=== PATIENT | male | born 1945 | race Caucasian/White ===

== ENCOUNTER 2021-05-31 13:10 | Outpatient (CLI) | payer MEDICARE | END 2021-05-31 23:59 | disposition home or self-care (01) | LOC: LAB.S 13:10 | PROVIDERS: ATTEND Physician Assistant | DX: R10.9 Unspecified abdominal pain (principal) | CPT/HCPCS: 87086 ==

== ENCOUNTER 2022-09-29 01:59 | Outpatient (CLI) | payer MEDICARE | END 2022-09-29 02:00 | disposition critical access hospital (66) | LOC: EMS 01:59 | DX: R07.9 Chest pain, unspecified (principal); R07.81 Pleurodynia | CPT/HCPCS: A0425; A0429 ==

== ENCOUNTER 2022-09-29 02:39 | Emergency (ER) | payer MEDICARE ==
--- NOTE | 2022-09-29 03:00 | ED Physician Documentation ---
History of Present Illness - Stated complaint Stated Complaint: CHEST PX - Chief complaint Chief Complaint: Resp - History obtained from History obtained from: Patient, Family () - Additonal information Additional information: 77-year-old male with past medical history of bladder cancer status postresection in July 2021 and chemotherapy, with new left chest tumor diagnosed in July, also with R sided PE dx 2-3 weeks ago on lovenox, presents with left-sided chest pain waking him from sleep at 1 AM, constant, severe, positional, improving status post 4 aspirin en route with EMS. Currently 3 out of 10 but was initially 10 out of 10. Review of Systems Ten Systems: 10 systems reviewed and negative Constitutional: denies: Fever, Chills Cardiac: reports: Chest pain / pressure. denies: Palpitations Respiratory: reports: Dyspnea. denies: Cough GI: denies: Abdominal Pain, Nausea Musculoskeletal: reports: Back pain PD PAST MEDICAL HISTORY - Past Medical History Cardiovascular: Hypertension, High cholesterol Other Past Medical History: PE - Past Surgical History Past Surgical History: Yes HEENT: Cataracts - Present Medications Home Medications: Ambulatory Orders Medication Instructions Recorded Confirmed Aspirin [Aspir 81] 09/19/15 09/19/15 Lisinopril/Hydrochlorothiazide 09/19/15 09/19/15 [Lisinopril-Hctz 10-12.5 mg Tab] - Allergies Allergies/Adverse Reactions: Allergies Allergy/AdvReac Type Severity Reaction Status Date / Time No Known Drug Allergies Allergy Verified 09/29/22 02:48 - Social History Does the pt smoke?: No Smoking Status: Never smoker Does the pt drink ETOH?: Yes Does the pt have substance abuse?: No - Immunizations Immunizations are current?: No Immunizations: TDAP >10years/unknown PD ED PE NORMAL - Vitals Vital signs reviewed: Yes - General General: Alert and oriented X 3, No acute distress, Other (thin appearing) - HEENT HEENT: Atraumatic, PERRL, EOMI, Moist mucous membranes, Pharynx benign - Neck Neck: Supple, no meningeal sign - Cardiac Cardiac: RRR - Respiratory Respiratory: No respiratory distress, Clear bilaterally - Abdomen Abdomen: Non tender, Non distended - Back Back: No spinal TTP - Derm Derm: Normal color, Warm and dry - Extremities Extremities: No deformity - Neuro Neuro: No motor deficit, No sensory deficit - Psych Psych: Normal mood, Normal affect Results - Vitals Vitals: Vital Signs - 24 hr 09/29/22 09/29/22 02:41 03:41 Temperature 37.8 C Heart Rate 76 72 Respiratory 21 15 Rate Blood Pressure 123/67 114/62 O2 Saturation 97 98 Oxygen O2 Source Room air - EKG (time done) 0249 Rate: Rate (enter#) (74) Rhythm: NSR [place]: Normal Intervals: Normal LA QRS: Normal Ischemia: Normal ST segments - Labs Labs: Laboratory Tests 09/29/22 09/29/22 09/29/22 03:00 03:00 03:00 WBC 7.8 RBC 3.69 L Hgb 11.3 L Hct 36.4 L MCV 98.6 H MCH 30.6 MCHC 31.0 L RDW 12.5 Plt Count 319 MPV 8.7 Neut # (Auto) 6.1 Lymph # (Auto) 1.0 L [place] # (Auto) 0.7 Eos # (Auto) 0.1 Baso # (Auto) 0.0 Absolute Nucleated RBC 0.00 Nucleated RBC % 0.0 Sodium 136 Potassium 3.5 Chloride 100 L Carbon Dioxide 24 Anion Gap 12.0 BUN 18 Creatinine 0.7 Estimated GFR (MDRD) 110 Glucose 112 H Calcium 8.8 Total Bilirubin 0.8 AST 12 ALT 16 Alkaline Phosphatase 79 Troponin I High Sens 2.6 B-Natriuretic Peptide Total Protein 7.3 Albumin 3.4 Globulin 3.9 Albumin/Globulin Ratio 0.9 L Lipase 28 09/29/22 03:00 WBC RBC Hgb Hct MCV MCH MCHC RDW Plt Count MPV Neut # (Auto) Lymph # (Auto) [place] # (Auto) Eos # (Auto) Baso # (Auto) Absolute Nucleated RBC Nucleated RBC % Sodium Potassium Chloride Carbon Dioxide Anion Gap BUN Creatinine Estimated GFR (MDRD) Glucose Calcium Total Bilirubin AST ALT Alkaline Phosphatase Troponin I High Sens B-Natriuretic Peptide 13 Total Protein Albumin Globulin Albumin/Globulin Ratio Lipase PD Medical Decision Making - ED course ED course: 77yM p/w L sided chest pain, will obtain trop/BNP to evaluate for R heart strain 2/2 PE. patient is already on appropriate treatment and compliant with treatment. will also eval for cardiac injury. ekg noncontributory. symptomatic care provided as well. Patient feeling significantly better. Return precautions given. plan to f/u with oncologist and palliative care. Departure - Departure Disposition: 01 Home, Self Care Clinical Impression: Chest pain Condition: Good Instructions: ED Chest Pain Atypical Unkn Cause Comments: You were seen in the emergency department for chest pain and had EKG, lab work, and chest x-ray done which revealed stable right lung mass. EKG did not indicate a heart attack nor did your bloodwork. There is additionally no strain on the heart based on bloodwork, which can be an indication of worsening pulmonary embolism. Please follow up with your oncologist and with palliative care. return to the ED for new or worsening symptoms or other concerns.
[2022-09-29 03:06] LABS: BASOPHILS % (AUTO) 0.5 %; EOSINOPHILS # (AUTO) 0.1 10^3/uL (0.0-0.7); EOSINOPHILS % (AUTO) 0.6 %; HCT - HEMATOCRIT 36.4 % (42.0-52.0); HGB - HEMOGLOBIN 11.3 g/dL (14.0-18.0); LYMPHOCYTES % (AUTO) 12.5 %; MEAN CORPUSCULAR HEMOGLOBIN 30.6 pg (27.0-31.0); MEAN CORPUSCULAR VOLUME 98.6 fL (80.0-94.0); MEAN PLATELET VOLUME 8.7 fL (7.4-11.4); MONOCYTES # (AUTO) 0.7 10^3/uL (0.0-1.0); MONOCYTES % (AUTO) 8.8 %; NEUTROPHILS # (AUTO) 6.1 10^3/uL (1.5-6.6); NEUTROPHILS % (AUTO) 77.5 %; PLT - PLATELET COUNT 319 10^3/uL (130-450); RED BLOOD COUNT 3.69 10^6/uL (4.70-6.10); RED CELL DISTRIBUTION WIDTH 12.5 % (12.0-15.0); WHITE BLOOD COUNT 7.8 x10^3/uL (4.8-10.8)
[2022-09-29 03:18] LABS: ALBUMIN 3.4 g/dL (3.2-5.5); ALBUMIN/GLOBULIN RATIO 0.9 (1.0-2.2); BILIRUBIN,TOTAL 0.8 mg/dL (0.2-1.0); CALCIUM 8.8 mg/dL (8.5-10.3); CREATININE 0.7 mg/dL (0.6-1.2); POTASSIUM 3.5 mmol/L (3.5-5.0); TOTAL PROTEIN 7.3 g/dL (6.7-8.2)
[2022-09-29] MEDS: MORPHINE 2 MG/ML CARPUJECT IVP STA (03:34)
[2022-09-29 04:08] VITALS: BP 115/60
--- NOTE | 2022-09-29 08:22 | XRAY Report ---
PROCEDURE: Chest 1 View X-Ray INDICATIONS: Chest Pain TECHNIQUE: One view of the chest was acquired. COMPARISON: None. FINDINGS: Surgical changes and devices: None. Lungs and pleura: Hyperinflation suggesting COPD. Infiltrates in the left lung suspicious for pneumon ia. No pleural effusions or pneumothorax. Mediastinum: Mediastinal contours appear normal. Heart size is normal. Bones and chest wall: No suspicious bony lesions. Overlying soft tissues appear unremarkable. IMPRESSION: 1. Infiltrates in the left lung suspicious for pneumonia. 2. Hyperinflation suggesting COPD. No significant discrepancy with the preliminary interpretation. Reviewed by: Jeovany Steel MD on 09/29/2022 8:30 AM PST Approved by: Jeovany Steel MD on 09/29/2022 8:30 AM [facility] Station ID: [id number]
== END 2022-09-29 04:11 | disposition home or self-care (01) ==
LOC: EDUNIT# → ED 02:39
DX: R07.9 Chest pain, unspecified (principal)
CPT/HCPCS: 36415; 80053; 83690; 83880; 84484; 85025; 93005; 96374; 99284

== ENCOUNTER 2023-05-10 08:00 | Outpatient (CLI) | payer MEDICARE ==
[2023-05-10 17:10] LABS: BASOPHILS % (AUTO) 0.2 %; EOSINOPHILS % (AUTO) 0.1 %; HCT - HEMATOCRIT 30.6 % (42.0-52.0); HGB - HEMOGLOBIN 9.4 g/dL (14.0-18.0); LYMPHOCYTES # (AUTO) 0.2 10^3/uL (1.5-3.5); LYMPHOCYTES % (AUTO) 1.8 %; MEAN CORPUSCULAR HEMOGLOBIN 30.7 pg (27.0-31.0); MEAN CORPUSCULAR HGB CONC 30.7 g/dL (32.0-36.0); MEAN PLATELET VOLUME 9.8 fL (7.4-11.4); MONOCYTES # (AUTO) 0.4 10^3/uL (0.0-1.0); MONOCYTES % (AUTO) 4.2 %; NEUTROPHILS # (AUTO) 7.7 10^3/uL (1.5-6.6); PLT - PLATELET COUNT 170 10^3/uL (130-450); RED BLOOD COUNT 3.06 10^6/uL (4.70-6.10); RED CELL DISTRIBUTION WIDTH 15.3 % (12.0-15.0); WHITE BLOOD COUNT 8.3 x10^3/uL (4.8-10.8)
[2023-05-10 17:21] LABS: ALBUMIN 3.2 g/dL (3.2-5.5); BILIRUBIN,TOTAL 0.3 mg/dL (0.2-1.0); CALCIUM 8.5 mg/dL (8.5-10.3); CREATININE 0.6 mg/dL (0.6-1.3); TOTAL PROTEIN 6.5 g/dL (6.4-8.9)
== END 2023-05-10 23:59 | disposition home or self-care (01) ==
LOC: LAB.R 08:00
DX: C67.9 Malignant neoplasm of bladder, unspecified (principal)
CPT/HCPCS: 80053; 85025

== ENCOUNTER 2023-05-31 08:00 | Outpatient (CLI) | payer MEDICARE ==
[2023-05-31 15:13] LABS: BASOPHILS % (AUTO) 0.5 %; EOSINOPHILS % (AUTO) 1.9 %; LYMPHOCYTES % (AUTO) 9.8 %; MEAN CORPUSCULAR HGB CONC 30.6 g/dL (32.0-36.0); MEAN CORPUSCULAR VOLUME 101.2 fL (80.0-94.0); MEAN PLATELET VOLUME 10.1 fL (7.4-11.4); MONOCYTES % (AUTO) 9.8 %; NEUTROPHILS % (AUTO) 77.5 %; PLT - PLATELET COUNT 55 10^3/uL (130-450); RED BLOOD COUNT 0.84 10^6/uL (4.70-6.10); WHITE BLOOD COUNT 2.2 x10^3/uL (4.8-10.8)
[2023-05-31 15:25] LABS: HCT - HEMATOCRIT 8.5 % (42.0-52.0); HGB - HEMOGLOBIN 2.6 g/dL (14.0-18.0)
[2023-05-31 15:27] LABS: ABNORMAL LYMPHS % (MANUAL) 0 %; BAND NEUTROPHILS % (MANUAL) 0 %
[2023-05-31 15:29] LABS: CALCIUM 8.8 mg/dL (8.5-10.3); CREATININE 0.8 mg/dL (0.6-1.3); POTASSIUM 3.4 mmol/L (3.5-4.5)
[2023-05-31 15:59] LABS: BASOPHILS % (MANUAL) 1 %; DIFFERENTIAL COMMENT MANUAL DIFFERENTIAL; LYMPHOCYTES # (MANUAL) 0.2 10^3/uL (1.5-3.5); LYMPHOCYTES % (MANUAL) 9 %; MONOCYTES # (MANUAL) 0.2 10^3/uL (0.0-1.0); NEUTROPHILS # (MANUAL) 1.8 10^3/uL (1.5-6.6)
[2023-05-31 16:05] LABS: THYROID STIMULATING HORMONE 1.19 uIU/mL (0.34-5.60)
== END 2023-05-31 23:59 | disposition home or self-care (01) ==
LOC: LAB.S 08:00
PROVIDERS: ATTEND Internal Medicine Hematology & Oncology
DX: C67.9 Malignant neoplasm of bladder, unspecified (principal); C34.12 Malignant neoplasm of upper lobe, left bronchus or lung
CPT/HCPCS: 36415; 80048; 84436; 84443; 85025

== ENCOUNTER 2023-05-31 16:26 | Emergency (ER) | payer MEDICARE ==
[2023-05-31 16:42] VITALS: BP 123/63; O2SAT 98
[2023-05-31 16:55] LABS: HCT - HEMATOCRIT 29.9 % (42.0-52.0); HGB - HEMOGLOBIN 9.2 g/dL (14.0-18.0)
--- NOTE | 2023-05-31 17:08 | ED Physician Documentation ---
History of Present Illness - Stated complaint Stated Complaint: ABNORMAL LABS - Chief complaint Chief Complaint: General - History obtained from History obtained from: Patient - Additonal information Additional information: Patient is a 78-year-old male with a history of metastatic bladder cancer presenting for evaluation of an abnormal lab result. Patient is scheduled for an infusion on and the home nurse came to draw blood from his port. He was notified that his hemoglobin was abnormally low and directed to the emergency department for evaluation. He is on Xarelto. Denies blood in stools. He does have a urostomy and denies bloody urine Today. Review of Systems Constitutional: denies: Fever Cardiac: denies: Chest pain / pressure Respiratory: denies: Dyspnea Neurologic: reports: Generalized weakness PD PAST MEDICAL HISTORY - Past Medical History Cardiovascular: Hypertension, High cholesterol - Past Surgical History Past Surgical History: Yes HEENT: Cataracts - Present Medications Home Medications: Ambulatory Orders Medication Instructions Recorded Confirmed Aspirin [Aspir 81] 09/19/15 09/19/15 Lisinopril/Hydrochlorothiazide 09/19/15 09/19/15 [Lisinopril-Hctz 10-12.5 mg Tab] Morphine ER [Ms Contin] 15 mg PO Q12H PRN #20 tablet 09/29/22 - Allergies Allergies/Adverse Reactions: Allergies Allergy/AdvReac Type Severity Reaction Status Date / Time No Known Drug Allergies Allergy Verified 05/31/23 16:31 - Social History Does the pt smoke?: No Smoking Status: Never smoker Does the pt drink ETOH?: Yes Does the pt have substance abuse?: No - Immunizations Immunizations are current?: No Immunizations: TDAP >10years/unknown PD ED PE NORMAL - General General: Alert and oriented X 3, No acute distress, Well developed/nourished - HEENT HEENT: Atraumatic - Neck Neck: Supple, no meningeal sign - Cardiac Cardiac: RRR, No murmur, Other (Port to right chest wall) - Respiratory Respiratory: No respiratory distress, Clear bilaterally - Abdomen Abdomen: Soft, Non tender, Non distended, Other (Urostomy with yellow-colored urine) - Derm Derm: Warm and dry - Neuro Neuro: Normal speech Results - Vitals Vitals: Vital Signs - 24 hr 05/31/23 16:31 Temperature 36.5 C Heart Rate 92 Respiratory 16 Rate Blood Pressure 123/63 O2 Saturation 98 Oxygen O2 Source Room air - Labs Labs: Laboratory Tests 05/31/23 16:47 Hgb 9.2 L Hct 29.9 L PD Medical Decision Making - ED course Complexity details: reviewed results, d/w patient, d/w family ED course: Patient is a 78-year-old male with a history of metastatic bladder cancer presenting for evaluation of an abnormal lab. Labs obtained this morning from the port demonstrated an abnormally low hemoglobin and hematocrit. On recheck here his hemoglobin is 9.2 and hematocrit is 29.9. These are similar to prior labs. I suspect that earlier labs were falsely low due to dilution as they state that she had cleared to the port with saline prior to drawing the labs. Patient does not have any acute symptoms to suggest blood loss. He was encouraged to have close follow-up with his oncologist and advised on concerning symptoms to return for. Departure - Departure Disposition: 01 Home, Self Care Clinical Impression: Chronic anemia Condition: Stable Follow-Up: EPHRAIM ALVAREZ MD [Physician No Access] - Comments: We rechecked your hemoglobin today and it is 9.2 and your hematocrit is 29.9. I suspect that your results from your labs earlier today were an error and diluted giving false results. Please continue to follow-up with your oncologist. Return to the ER with any concerns. Forms: PCP List Discharge Date/Time: 05/31/23 17:15
== END 2023-05-31 17:15 | disposition home or self-care (01) ==
LOC: ED 16:26
DX: D64.9 Anemia, unspecified (principal); C67.9 Malignant neoplasm of bladder, unspecified; C34.12 Malignant neoplasm of upper lobe, left bronchus or lung
CPT/HCPCS: 36415; 80048; 84436; 84443; 85014; 85018; 85025; 86850; 86900; 86901; 86920; 99283